=== PATIENT | female | born 2000 | race Caucasian/White ===

== ENCOUNTER 2024-06-23 15:23 | Outpatient (AMB) | payer MEDICAID, SELFPAY ==
--- NOTE | 2024-06-23 15:25 | A.OFFVIS_ITS ---
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 She has had consistant weight loss and issues worsened s/p endoscop y 04/04/24 @ [facility]. States she has had issues for most of her life with nutrition and eating w/ pain. Worsened after endoscopy. Has gastroparesis. 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 Upon discussion with her she has a very complex history. 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 She has undergone extensive workup by GI. She had an upper endoscopy in March for evaluation of nausea vomiting and reflux and weight loss. She also had a gastric emptying study. She was subsequently seen by [facility]. Upon discussion with her she has an acute timeline that over the last 6 months her symptoms have gotten worse. At the current time she is having enteric feeds which she is tolerating and reports that she is gaining some weight back. She is barely able to tolerate any p.o. developed significant nausea and vomiting. She now presents to us for vascular evaluation regarding possible MALS. [facility] Surgical History (Updated 06/23/24 @ 15:37 by PIERRE Richards) H/O endoscopy (~03/2024) Social History (Updated 06/23/24 @ 15:36 by PIERRE Richards) Patient Tobacco Use Status: Never used Tobacco Review of Systems Const All systems reviewed & are unremarkable except as noted in HPI and below Reports no additional complaints ENT Reports Normal hearing present Card Denies chest pain, Denies chest pain at rest, Denies chest pain with activity and Denies pedal edema Resp Denies cough GI Denies abdominal pain Musc Denies abnormal gait, Denies muscle cramps and Denies radiating pain into limb Skin/Breast Denies skin ulcer and Denies wounds Neuro Reports Normal hearing present and Denies abnormal gait Psych Reports no additional complaints Physical Exam Vital Signs: BMI result Body Mass Index 14.8 Const General: cooperative Nutritional Appearance: cachectic, malnourished and underweight Orientation/consciousness: oriented to person, oriented to place and oriented to time HEENT Head: Yes normal to inspection Neck Neck: Yes normal visual inspection Carotids: no bruits Chest Chest palpation & inspection: normal inspection of the chest Resp Effort & Inspection: normal respiratory effort and able to speak in complete sentences Auscultation: clear to auscultation bilaterally, no crackles, no rales, no rhonchi and no wheezes Cardio Rate: regular rate Rhythm: regular rhythm Heart sounds: S1 normal heart sound present and S2 normal heart sound present Bruits: no carotid bruits Peripheral pulses: Peripheral pulses 2+ throughout GI Other: Obvious enteric tube Inspection: Yes normal to inspection Auscultation: Hypoactive bowel sounds present Skin Wounds: no wounds Hair: normal Neuro General: oriented to person, oriented to place and oriented to time Cranial nerves: Yes CN's II-XII intact bilaterally and Yes Normal hearing pre sent Cognition (Neuro): normal cognition Motor exam (neuro): 5/5 motor strength present throughout Extrem Other: venous exam: No significant superficial varicosities or spider telangiectasias, minimal edema General: No clubbing, No cyanosis and No edema Psych Appearance: grossly normal Mental Status: mental status grossly normal Speech and movement: Normal speech and movement present Results Reviewed Results Reviewed: Written report from [facility] scan from [facility] was reviewed Assessment & Plan Assessment & Plan (1) Median arcuate ligament syndrome: Code(s): I77.4 - Celiac artery compression syndrome Category: Medical Plan: I had an opportunity to review the scan. Her symptomatology does not appear to meet criteria for MALS. Unfortunately I do not have images but there is no definitive evidence on written report. I do think she may be better served at a tertiary care center. She has established care at [facility]. I did mention to her that I would continue follow-up there. If this continues to be a source of concern and needs to be re-evaluated would consider evaluation by Dr. John Shultz from vascular surgery at [facility]. Thank you for allowing us to assist in her care. If there are any questions or concerns please do not hesitate to contact us. Coding Level of Care Code New Pt Level 4 (78887) Diagnoses Median arcuate ligament syndrome I77.4
[2024-06-23 15:27] VITALS: BMI 14.8
--- OUTSIDE RECORDS SUMMARY | 2024-06-23 15:58 | XMS_ITS | Encounter Summary ---
Author Organization [employer] Address [address] [facility] [address] [place] [address] Care Team Providers Care Carpenter Rough Name Role Phone Smita [place] Primary Care Provider Unavail able Smita [place] Unavailable Unavailable Benjamin Headley Unassigned Primary Care Provider U Peggy Alfredo Primary Care Provider [phone] Christine Alatorre PMHNP Unavailable [phone] June, Aron AGNSilvestre Primary Care Provider [phone] Encounter Details Date Type Department Care Team (Late st Contact Info) Description 03/11/2022 Orders Only [facility] [address] [place] [address] Smita [place] FNP Postural dizziness with presyncope (Primary Dx) Social History Tobacco Use Types Packs/Day Years Used Date Smoking Tobacco: Never Passive Smoke Exposure: Past Smokeless Tobacco: Never Alcohol Use Standard Drinks/Week Comments Yes 0 (1 standard drink = 0.6 oz pur e alcohol) 1x a month Comments Unknown Sex and Gender Information Value Date Recorded Sex Assigned at Female 02/07/2022 11:21 AM EST Legal Sex Female 6:23 PM EDT Gender Identity Non-Binary 02/18/2023 4:09 PM EST Sexual Orientation Demisexual 02/18/2023 4: 09 PM EST Sexual Orientation Queer 02/18/2023 4: 09 PM EST COVID-19 Exposure Response Date Recorded In the last 10 days, have yo u been in contact with someone who was confirmed or suspected to have Coronavirus/COVID-19? No / Unsure 03/11/2022 4:44 PM EST documented as of this encounter Progress Notes * CAMILA Ellsworth - 03/11/2022 5:54 PM EST ERROR Subjective Patient ID: Veronique Soni is a 21 y.o. female who presents for No chief complaint on file.. HPI Review of Systems Objective Physical Exam Assessment/Plan documented in this encounter Plan of Treatment Upcoming Encounters Date Type Department Care Team (Late st Contact Info) Description 06/28/2024 1:20 PM EDT Office Visit [address] [address] June Aron [address] [address] 07/05/2024 1:20 PM EDT Office Visit [address] [address] [address]Aron [address] [address] 07/12/2024 2:20 PM EDT Office Visit [address] [address] June Aron [address] [address] 07/19/2024 1:20 PM EDT Office Visit [address] [address]ron [address] [address] 07/26/2024 2:20 PM EDT Office Visit [address] [address] Aron Rhodes [address] [address] 08/02/2024 1:20 PM EDT Office Visit [address] [address] Aron [place] AGNP [address] [place] [address] documented as of this encounter Visit Diagnoses Diagnosis Postural dizziness with presyncope- Primary documented in this encounter Care Teams Carpenter Rough Relationship Specialty Start Date End Date Smita [place] FNP PCP - General Family Medicine 12/13/21 06/10/22 Benjamin Headley Unassigned PCP - General Family Medicine 06/11/22 06/12/22 Peggy Marx FNP [address] [place] [address] PCP - General Family Medicine 06/13/22 01/25/24 Aron Rhodes AGNP [address] [place] [address] PCP - General Family Medicine 01/26/24 Smita [place] FNP Family Medicine 12/13/21 06/10/22 Christine Alatorre PMHNP [address] [place] [address] Nurse Practitioner Psychiatry 01/29/23 documented as of this encounter
--- OUTSIDE RECORDS SUMMARY | 2024-06-23 15:58 | XMS_ITS | Data Portability ---
Author Organization [facility], Sports Medicine, [facility] Address [address] [place] [address] Assessment No assessment recorded. Plan of Treatment Reminders Order Date Submit Date Provider Last Modified By Organization Details Last Modified Time Details Appointments None record ed. Lab None record ed. Referral None record ed. Procedures None record ed. Surgeries None record ed. Imaging None record ed. Medication Orders None record ed. Patient TargetsNo targets recorded. Patient InstructionsNo instructions recorded. Reason for Referral None Reported. Results Created Date Observation Date Name Description Value Unit Range Abnormal Flag Note LastModifiedBy Organization Detail LastModifiedTime Result Notes None recorded. Procedures Surgical History Date Name Laterality Status Provider Name and Address Organization Details Recorded Time Tania - Upper Endoscopy completed Demond Marin MD [address] [place] [address], [id number], [facility] 04/04/2024 09:22:54 Imaging Results None recorded. Procedure Notes None recorded. Medical Equipment None Reported. Allergies No known drug allergies Vitals None Recorded Social History None recorded. Functional Status None recorded. Mental Status None recorded. Family History Nothing Reported. Medical History No medical history recorded. Gynecological HistoryNo gynecological history recorded. Obstetrics History GPAL:G 0 P 0 0 0 0 Past Encounters Encounter ID Performer Location Encounter Start Date Encounter Closed Date Diagnosis/Indication Diagnosis SNOMED-CT Code Diagnosis ICD10 Code Diagnosis Note [id number] Demond Marin MD Endoscopy , [address] [address] 04/04/2024 08:27:35 04/04/2024 14:01:31 Health Concerns Section Related Observation LastModified by Organization Detai ls LastModified Time None Recorded Concern Status LastModified by Organization Details LastModified Time None Recorded Advance Directives Directive None Recorded Payers None recorded. OBGyn Episode No OBEpisode recorded.
--- OUTSIDE RECORDS SUMMARY | 2024-06-23 15:58 | XMS_ITS ---
Author Organization [employer] Address [address] [place] [address] [address]t [place] [address] Care Team Providers Care Senior Center Director Name Role Phone Christine AlatorreHNP Unavailable [phone] JuneAron Primary Care Provider [phone] CM Complex Status:Enrolled (Active) Start date:05/19/2024 Enrollment date:05/25/2024 Enrollment reason:ADT Feed Case Team Name Relationship Phone May Ginny (Responsible Staff) [phone] Continued Care and Services Coordination
--- OUTSIDE RECORDS SUMMARY | 2024-06-23 15:58 | XMS_ITS | Encounter Summary ---
Author Organization [employer] Address [address] [facility] 7t [place] [address] Care Team Providers Care Fish Hatchery Worker Name Role Phone Peggy Marx FLOUR WORKER Primary Care Provider [phone] Christine Alatorre PMHNP Unavailable June, Aron AGNP Primary Care Provider Reason for Visit * Reason Onset Date Comments Med Refill 04/14/2023 Encounter Details Date Type Department Care Team ([facility] st Contact Info) Description 04/14/2023 Refill [facility] [address] [place] [address] Peggy Marx FNP [address] [place] [address] Nightmare disorder Social History Tobacco Use Types Packs/Day Years Used Date Smoking Tobacco: Never Passive Smoke Exposure: Past Smokeless Tobacco: Never Alcohol Use Standard Drinks/Week Comments Yes 0 (1 standard drink = 0.6 oz pur e alcohol) 1x a month Alcohol Answer Date Recorded How often do you have a drink containing alcohol ? 0 03/19/2023 How many drinks containing a lcohol do you have on a typical day when you are drinking? 0 03/19/2023 How often do you have six or more drinks on one occasion? 0 03/19/2023 Depression Answer Date Recorded Patient Health Questionnaire-9 Score 15 01/29/2023 Patient Health Questionnaire-9 Score 15 01/29/2023 Last PHQ-9: Questionnaire Data Not on file 1 04/01/2022 Housing Stability Answer Date Recorded What is your housing situation today? I have manish [place]ks 12/02/[address] you li ve. Do you have problems with any of the following? None of the above 12/02/2022 Food Insecurity Answer Date Recorded Within the past 12 months, y ou worried that your food would run out before you got money to buy more: Never True 12/02/2022 Within the past 12 months,th e food you bought just didn't last and you didn't have enough money to get more: Never True Transportation Answer Date Recorded In the past 12 months, has l ack of transportation kept you from medical appts, meetings, work or from getting things needed for daily living? No 12/02/2022 Intimate Partner Violence Answer Date R ecorded Within the last year, have y ou been afraid of your partner or ex-partner? 1 03/19/2023 Within the last year, have y ou been humiliated or emotionally abused in other ways by your partner or ex-partner? 1 Within the last year, have y ou been kicked, hit, slapped, or otherwise physically hurt by your partner or ex-partner? 1 03/19/2023 Within the last year, have y ou been raped or forced to have any kind of sexual activity by your partner or ex-partner? 2 03/19/2023 Utilities Answer Date Recorded In the past 12 months, has t he electric, gas, oil or water company threatened to shut off services in your home? No 12/02/2022 Depression Answer Date Recorded Patient Health Questionnaire-2 Score 2 01/29/2023 Comments Unknown Sex and Gender Information Value Date Recorded Sex Assigned at Female 02/07/2022 11:21 AM EST Legal Sex Female 6:23 PM EDT Gender Identity Non-Binary 02/18/2023 4:09 PM EST Sexual Orientation Demisexual 02/18/2023 4: 09 PM EST Sexual Orientation Queer 02/18/2023 4: 09 PM EST documented as of this encounter Miscellaneous Notes * Telephone Encounter - Monica Connelly LPN - 04/14/2023 2:49 PM EST Switched to 90 days per SR and approved per SR. * Telephone Encounter - Christine [place] - 04/14/2023 1:03 PM EST PCP: CAMILA Mccarthy Last in-person office visit: 04/14/2023 CAMILA Mccarthy Lab Results Component Value Date ALBUMIN 4.6 03/18/2023 ALT 24 03/18/2023 AST 30 03/18/2023 BUN 12 03/18/2023 CL 103 03/18/2023 CO2 25 03/18/2023 CREATININE 0.84 03/18/2023 EGFRCREATINI 109 02/12/2022 HCT 42.2 02/12/2022 HGB 14.1 03/18/2023 HGBA1C 5.0 02/12/2022 PLT 201 02/12/2022 K 4.0 03/18/2023 NA 138 03/18/2023 TSH 1.15 02/12/2022 WBC 7.4 03/18/2023 Future Appointments Date Time Provider Department Center 04/22/2023 1:00 PM COURTNEY Reza [facility] 07/14/2023 10:00 AM CAMILA Mccarthy [facility] Comments: documented in this encounter Plan of Treatment Upcoming Encounters Date Type Department Care Team (Late st Contact Info) Description 06/28/2024 1:20 PM EDT Office Visit [address] [address] Aron [place] AGNP [address] [place] [address] 07/05/2024 1:20 PM EDT Office Visit [address] [phone] Aron Rhodes AGNP [address] [place] [address] 07/12/2024 2:20 PM EDT Office Visit [address] [address] Aron Rhodes AGNSilvestre [address] [place] [address] 07/19/2024 1:20 PM EDT Office Visit [address] [phone] Aron Rhodes AGNP [address] [place] [address] 07/26/2024 2:20 PM EDT Office Visit [address] [phone] JuneAron AGNP [address] [place] [address] 08/02/2024 1:20 PM EDT Office Visit [address] [address] Aron Rhodes AGNP [address] [place] [address] documented as of this encounter Visit Diagnoses Diagnosis Nightmare disorder Other dysfunctions of sleep stages or arousal from sleep documented in this encounter Additional Health Concerns Assessment Noted Time PHQ-9 Depression Total Score: 15 023 10:10 AM EST documented as of this encounter Care Teams Fish Hatchery Worker Relationship Specialty Start Date End Date Peggy Marx FNP [address] [place] [address] PCP - General Family Medicine 06/13/22 01/25/24 Aron Rhodes AGNP [address] [place] [address] PCP - General Family Medicine 01/26/24 Christine Alatorre PMHNP [address] [place] [address] Nurse Practitioner Psychiatry 01/29/23 documented as of this encounter
--- OUTSIDE RECORDS SUMMARY | 2024-06-23 15:58 | XMS_ITS | Encounter Summary ---
Author Organization [employer] Address [address] [facility] 7t [place] [address] Care Team Providers Care Vice President Regulatory Name Role Phone Peggy Marx PRODUCTION ENGINE REPAIRER Primary Care Provider [phone] Christine Alatorre PMHNP Unavailable [phone] June, Aron AGNP Primary Care Provider [phone] Reason for Visit * Reason Comments Med Refill Encounter Details Date Type Department Care Team ([facility] st Contact Info) Description 09/28/[address] [facility] [address] [place] [phone] Peggy Marx FNP [address] [place], [place] [id number] Migraine without status migrainosus, not intractable, unspecified migraine type Social History Tobacco Use Types Packs/Day Years [...] encounter Miscellaneous Notes * Telephone Encounter - CAMILA Mccarthy - 09/29/2023 8:02 AM EDT Approving, but needs appt for additional refills. * Telephone Encounter - Fouzia Noriega - 09/28/2023 8:12 AM EDT PCP: CAMILA Mccarthy Last in-person office visit: 09/09/2023 CAMILA Mccarthy Lab Results Component Value Date ALBUMIN 4.6 03/18/2023 ALT 24 03/18/2023 AST 30 03/18/2023 BUN 12 03/18/2023 CL 103 03/18/2023 CO2 25 03/18/2023 CREATININE 0.84 03/18/2023 EGFRCREATINI 109 02/12/2022 HCT 42.2 02/12/2022 HGB 14.1 03/18/2023 HGBA1C 5.0 02/12/2022 PLT 201 02/12/2022 K 4.0 03/18/2023 NA 138 03/18/2023 TSH 1.15 02/12/2022 WBC 7.4 03/18/2023 No future appointments. Comments: documented in this encounter Plan of Treatment Upcoming Encounters Date Type Department Care Team (Late st Contact Info) Description 06/28/2024 1:20 PM EDT Office Visit [address] [address] Aron Rhodes AGNP [address] [place] [address] 07/05/2024 1:20 PM EDT Office Visit [address] [address] Aron Rhodes AGNP [address] [place] [address] 07/12/2024 2:20 PM EDT Office Visit [address] [address] Aron Rhodes AGNP [address] [place] [address] 07/19/2024 1:20 PM EDT Office Visit [address] [phone] Aron Rhodes AGNP [address] [place] [address] 07/26/2024 2:20 PM EDT Office Visit [address] [phone] [address] 08/02/2024 1:20 PM EDT Office Visit [address] [phone] Aron Rhodes [address] [address] documented as of this encounter Visit Diagnoses Diagnosis Migraine without status migrainosus, not intractable, unspecified migraine type documented in this encounter Additional Health Concerns Assessment Noted Time PHQ-9 Depression Total Score: 15 023 10:10 AM EST documented as of this encounter Care Teams Vice President Regulatory Relationship Specialty Start Date End Date Peggy Marx FNP [address] [place] [address] PCP - General Family Medicine 06/13/22 01/25/24 Aron Rhodes AGNP [address] [place] [address] PCP - General Family Medicine 01/26/24 Christine Alatorre PMHNP [address] [place] [address] Nurse Practitioner Psychiatry 01/29/23 documented as of this encounter
--- OUTSIDE RECORDS SUMMARY | 2024-06-23 15:58 | XMS_ITS | Encounter Summary ---
Author Organization [employer] Address [address] [facility] [address]t [place] [address] Care Team Providers Care Egg Crater Name Role Phone Francisco J Peggy COMMUNICATION SPECIALIST Primary Care Provider [phone] Christine Alatorre HNP Unavailable [phone] June, Aron AGNP Primary Care Provider [phone] Encounter Details Date Type Department Care Team ([facility] st Contact Info) Description 05/07/2023 Telephone [facility] [address] [place] [phone] Peggy Marx FNP [address] [place], [place] [phone] Social History Tobacco Use Types Packs/Day Years [...] encounter Miscellaneous Notes * Telephone Encounter - Chelle Morales - 05/14/2023 1:43 PM EDT Returning call, please try again. She will keep her phone on * Telephone Encounter - Shivani Mata - 05/07/2023 12:58 PM EDT Returning a missed call from nursing. Please call again documented in this encounter Plan of Treatment Upcoming Encounters Date Type Department Care Team (Late st Contact Info) Description 06/28/2024 1:20 PM EDT Office Visit [address] [address] Aron Rhodes [address] [address] 07/05/2024 1:20 PM EDT Office Visit [address] [address] Aron Rhodes [address] [address] 07/12/2024 2:20 PM EDT Office Visit [address] [address] JuneAron [address] [address] 07/19/2024 1:20 PM EDT Office Visit [address] [address] Aron Rhodes [address] [address] 07/26/2024 2:20 PM EDT Office Visit [address] [address] JuneAron [address] [address] 08/02/2024 1:20 PM EDT Office Visit [address] [address] Aron Rhodes [address] [address] documented as of this encounter Visit Diagnoses Not on filedocumented in this encounter Additional Health Concerns Assessment Noted Time PHQ-9 Depression Total Score: 15 023 10:10 AM EST documented as of this encounter Care Teams Egg Crater Relationship Specialty Start Date End Date Peggy Mrax FNP [address] [place] [address] PCP - General Family Medicine 06/13/22 01/25/24 Aron Rhodes AGNP [address] [place] [address] PCP - General Family Medicine 01/26/24 Christine Alatorre PMHNP [address] [place] [address] Nurse Practitioner Psychiatry 01/29/23 documented as of this encounter
--- OUTSIDE RECORDS SUMMARY | 2024-06-23 15:58 | XMS_ITS | Encounter Summary ---
Author Organization [employer] Address [address] [facility] 7t [place] [address] Care Team Providers Care Geomagnetist Name Role Phone Peggy Marx COUNTER INSTALLER Primary Care Provider [phone] Christine Alatorre PMHNP Unavailable [phone] June, Aron AGNP Primary Care Provider [phone] Reason for Visit * Reason Comments Med Refill Encounter Details Date Type Department Care Team ([facility] st Contact Info) Description 11/16/2023 Refill [facility] [address] [place] [phone] Peggy Marx FNP 102 [place], [place] [phone] Irritable bowel syndrome with both constipation and diarrhea; Gastroesophageal reflux disease without esophagitis Social History Tobacco Use Types Packs/Day Years [...] * Telephone Encounter - CAMILA Mccarthy - 11/17/2023 9:01 AM EDT Approving, but needs appt for additional refills. * Telephone Encounter - Estela Bagley - 11/16/2023 8:19 AM EDT PCP: CAMILA Mccarthy Last in-person office visit: 09/09/2023 CAIMLA Mccarthy Lab Results Component Value Date BUN 12 03/18/2023 CREATININE 0.84 03/18/2023 EGFRCREATINI 109 02/12/2022 HGBA1C 5.0 02/12/2022 K 4.0 03/18/2023 TSH 1.15 02/12/2022 [] Lab due: [] BMP [] TSH [] A1C [] Appointment due: No future appointments. Comments: documented in this encounter Plan of Treatment Upcoming Encounters Date Type Department Care Team (Late st Contact Info) Description 06/28/2024 1:20 PM EDT Office Visit [address] [address] Aron Rhodes AGNP [address] [place] [address] 07/05/2024 1:20 PM EDT Office Visit [address] [address] Aorn Rhodes AGNP [address] [place] [address] 07/12/2024 2:20 PM EDT Office Visit [address] [address] Aron Rhodes AGNP [address] [place] [address] 07/19/2024 1:20 PM EDT Office Visit [address] [address] Aron Rhodes AGNP [address] [place] [address] 07/26/2024 2:20 PM EDT Office Visit [address] [phone] Aron Rhodes AGNP [address] [place] [address] 08/02/2024 1:20 PM EDT Office Visit [address] [phone] Aron Rhodes AGNP [address] [place] [address] documented as of this encounter Visit Diagnoses Diagnosis Irritable bowel syndrome with both constipation and diarrhea Gastroesophageal reflux disease without esophagitis Esophageal reflux documented in this encounter Additional Health Concerns Assessment Noted Time PHQ-9 Depression Total Score: 15 023 10:10 AM EST documented as of this encounter Care Teams Geomagnetist Relationship Specialty Start Date End Date Peggy Marx FNP [address] [place] [address] PCP - General Family Medicine 06/13/22 01/25/24 Aron Rhodes AGNP [address] [place] [address] PCP - General Family Medicine 01/26/24 Christine lAatorre PMHNP [address] [place] [address] Nurse Practitioner Psychiatry 01/29/23 documented as of this encounter
--- OUTSIDE RECORDS SUMMARY | 2024-06-23 15:59 | XMS_ITS | Encounter Summary ---
Author Organization [employer] Address 75 [facility] 7t [place] [address] Care Team Providers Care Stave Machine Tender Name Role Phone Peggy Marx WAREHOUSEMAN Primary Care Provider [phone] Christine Alatorre PMHNP Unavailable [phone] June, Aron AGNP Primary Care Provider [phone] Reason for Visit * Reason Comments Med Refill Encounter Details Date Type Department Care Team ([facility] st Contact Info) Description 05/20/2023 Refill [facility] [address] [place] [phone] Peggy Marx FNP 102 [place], [place] [phone] Menorrhagia with irregular cycle Social History Tobacco Use Types Packs/Day Years [...] encounter Miscellaneous Notes * Telephone Encounter - Reva Ontiveros RN - 05/26/2023 3:11 PM EDT [facility] states they have received referral on 03/19 but they do not have an appointment scheduled yet. They state patient needs to call them to set up appointment themselves at [phone] * Telephone Encounter - Joan Benitez - 05/20/2023 7:17 AM EDT PCP: CAMILA Mccarthy Last in-person office visit: 05/15/2023 CAMILA Mccarthy Lab Results Component Value Date ALBUMIN 4.6 03/18/2023 ALT 24 03/18/2023 AST 30 03/18/2023 BUN 12 03/18/2023 CL 103 03/18/2023 CO2 25 03/18/2023 CREATININE 0.84 03/18/2023 EGFRCREATINI 109 02/12/2022 HCT 42.2 02/12/2022 HGB 14.1 03/18/2023 HGBA1C 5.0 02/12/2022 PLT 201 02/12/2022 K 4.0 03/18/2023 NA 138 03/18/2023 TSH 1.15 02/12/2022 WBC 7.4 03/18/2023 Future Appointments Date Time Provider Department Center 06/17/2023 1:[address] [facility] 07/14/2023 10:00 AM CAMILA Mccarthy [facility] Comments: documented in this encounter Plan of Treatment Upcoming Encounters Date Type Department Care Team (Late st Contact Info) Description 06/28/2024 1:20 PM EDT Office Visit [address] [address] Aron Rhodes AGNP [address] [place] [address] 07/05/2024 1:20 PM EDT Office Visit [address] [phone] Aron Rhodes AGNP [address] [place] [address] 07/12/2024 2:20 PM EDT Office Visit [address] [address] Aron Rhodes AGNSilvestre [address] [place] [address] 07/19/2024 1:20 PM EDT Office Visit [address] [address] [address] [address] 07/26/2024 2:20 PM EDT Office Visit [address] [address] Aron Rhodes AGNSilvestre [address] [place] [address] 08/02/2024 1:20 PM EDT Office Visit [address] [address] Aron Rhodes [address] [address] documented as of this encounter Visit Diagnoses Diagnosis Menorrhagia with irregular cycle documented in this encounter Additional Health Concerns Assessment Noted Time PHQ-9 Depression Total Score: 15 023 10:10 AM EST documented as of this encounter Care Teams Stave Machine Tender Relationship Specialty Start Date End Date Peggy Marx FNP [address] [place] [address] PCP - General Family Medicine 06/13/22 01/25/24 Aron Rhodes AGNP [address] [place] [address] PCP - General Family Medicine 01/26/24 Christine Alatorre PMHNP [address] [place] [address] Nurse Practitioner Psychiatry 01/29/23 documented as of this encounter
--- OUTSIDE RECORDS SUMMARY | 2024-06-23 15:59 | XMS_ITS | Encounter Summary ---
Author Organization [employer] Address [address] [facility] 7t [place] [address] Care Team Providers Care Dust Collector Ore Crushing Name Role Phone Christine Alatorre HNP Unavailable [phone] JuneAron Primary Care Provider [phone] Encounter Details Date Type Department Care Team ([facility] Contact Info) Description 05/25/2024 Telephone [facility] [address] [place] [phone] JuneAron AGNP 102 [place] [address] Social History Tobacco Use Types Packs/Day Years [...] Answer Date Recorded Patient Health Questionnaire-9 Score 3 12/04/2023 Patient Health Questionnaire-9 Score 3 12/04/2023 Last PHQ-9: Questionnaire Data Not on file 1 Housing Stability Answer Date Recorded What is your housing situation today? I have manish wilks 12/10/[address] you li ve. Do you have problems with any of the following? None of the above 12/10/2023 Food Insecurity Answer Date Recorded Within the past 12 months, y ou worried that your food would run out before you got money to buy more: Often true 12/10/2023 Within the past 12 months,th e food you bought just didn't last and you didn't have enough money to get more: Often true Transportation Answer Date Recorded In the past 12 months, has l ack of transportation kept you from medical appts, meetings, work or from getting things needed for daily living? Yes, it has kept me from medical appointments or getting medications. 12/10/2023 Intimate Partner Violence Answer Date R ecorded [...] shut off services in your home? No 12/10/2023 Depression Answer Date Recorded Patient Health Questionnaire-2 Score 1 12/04/2023 Internet Access Answer Date Recorded Internet Access Q1 Yes 12/10/2023 Internet Access Q2 Not on file 12/10/2023 Comments Unknown Sex and Gender Information Value Date Recorded Sex Assigned at Female 02/07/2022 11:21 AM EST Legal Sex Female 6:23 PM EDT Gender Identity Non-Binary 02/18/2023 4:09 PM EST Sexual Orientation Demisexual 02/18/2023 4: 09 PM EST Sexual Orientation Queer 02/18/2023 4: 09 PM EST documented as of this encounter Miscellaneous Notes * Telephone Encounter - Indu Palmer LPN - 05/26/2024 8:58 AM EDT Spoke to austin MACK gave information that pt is homebound. They stated next thing is to find a vendor that will supply a pump. Will wait for a call back with a vendor that can supply pump. * Telephone Encounter - Sara Pily - 05/25/2024 1:39 PM EDT Please call [facility] they received a refferal for pt to have iv fluids, they need to know if patient is homebound, their ins only covers VNA services if you are unable to leave your house [phone] Opt 2 documented in this encounter Plan of Treatment Upcoming Encounters Date Type Department Care Team (Late st Contact Info) Description 06/28/2024 1:20 PM EDT Office Visit [address] [address] [address] [address] 07/05/2024 1:20 PM EDT Office Visit [address] [address] [address] [address] 07/12/2024 2:20 PM EDT Office Visit [address] [address] [address]Aron [address] [address] 07/19/2024 1:20 PM EDT Office Visit [address] [address] [address]ron [address] [address] 07/26/2024 2:20 PM EDT Office Visit [address] [phone] JuneAron AGNP [address] [place] [address] 08/02/2024 1:20 PM EDT Office Visit [facility] [address] [place] [phone] JuneAron AGNP [address] [place] [address] documented as of this encounter Visit Diagnoses Not on filedocumented in this encounter Additional Health Concerns Assessment Noted Time PHQ-9 Depression Total Score: 3 12/04/19 3:53 PM EDT documented as of this encounter Care Teams Dust Collector Ore Crushing Relationship Specialty Start Date End Date JuneAron AGNP [address] [place] [address] PCP - General Family Medicine 01/26/24 Christine Alatorre PMHNP [address] [place] [address] Nurse Practitioner Psychiatry 01/29/23 documented as of this encounter
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
--- OUTSIDE RECORDS SUMMARY | 2024-06-23 15:59 | XMS_ITS | Encounter Summary ---
Author Organization [employer] Address [address] [facility] 7t [place] [address] Care Team Providers Care Spotter Name Role Phone Christine Alatorre HNP Unavailable [phone] JuneAron Primary Care Provider Encounter Details Date Type Department Care Team ([facility] Contact Info) Description 05/27/2024 Telephone [facility] [address] [place] [phone] JuneAron AGNP 102 [place] [address] Social History Tobacco Use Types Packs/Day Years [...] PM EST documented as of this encounter Plan of Treatment Upcoming Encounters Date Type Department Care Team ([facility] st Contact Info) Description 06/28/2024 1:20 PM EDT Office Visit [address] [address] May, Aron, AGN[address] [address] 07/05/2024 1:20 PM EDT Office Visit [address] [address] Aron Rhodes [address] [address] 07/12/2024 2:20 PM EDT Office Visit [address] [address] [address]Aron [address] [address] 07/19/2024 1:20 PM EDT Office Visit [address] [address] [address]Aron [address] [address] 07/26/2024 2:20 PM EDT Office Visit [address] [address] JuneAron [address] [address] 08/02/2024 1:20 PM EDT Office Visit [address] [address] [address]Aron [address] [address] documented as of this encounter Visit Diagnoses Not on filedocumented in this encounter Additional Health Concerns Assessment Noted Time PHQ-9 Depression Total Score: 3 12/04/19 24 3:53 PM EDT documented as of this encounter Care Teams Spotter Relationship Specialty Start Date End Date JuneAronKINSilvestre [address] [place] [address] PCP - General Family Medicine 01/26/24 Christine Alatorre PMHNP [address] [place] [address] Nurse Practitioner Psychiatry 01/29/23 documented as of this encounter
--- OUTSIDE RECORDS SUMMARY | 2024-06-23 15:59 | XMS_ITS | Clinical Summary ---
Author Organization [facility] Address [address] [facility] [address] [place] [address] Care Team Providers Care Track Car Operator Name Role Phone Unknown Primary Care Provider Unavailabl e Allergies No known active allergies Medications Medication Sig Dispensed Refills Start Date End Date Status albuterol 90 mcg/actuation HFA Aerosol Inhaler Inhale 2 puffs into the lungs every 4 hours as needed for Wheezing. Use with spacer Active Active Problems Problem Noted Date Diagnosed Date Syncope Overview (11/17/2014): Two episodes: ?? In the shower. Sustained mild right-sided AC joint separation ?? Had LOC and fell down a flight of stairs Immunizations Name Administration Dates Next Due DTaP (Daptacel) 09/30/2002, 1,03/14/1999,01/17,1998 Hepatitis B Adult (Engerix-B , Recombivax) 09/30/2002,12/24/1999,09/06/1999 Hib HbOC Conjugate (HibTITER) 12/24/1999 ,03/14/1999,01/17/1999,11/08 Influenza Unspecified Formulation 2011(Deferred: Patient Refused - [facility] - Influenza Declined; 11/04/11; recorded on 11/04/2011 8:41:42 AM;) MMR Vaccine LIVE 09/30/2002,12/24/1999 Meningococcal ACWY Polysacch aride Conjugate (Menactra) 11/30/2014,10/23/2010 Polio Inactivated (IPOL) 09/30/2002,02/17,01/17/1999,11/08 Tdap (Adacel, Boostrix) 11/03/2008 Varicella LIVE (Varivax) 11/03/2006,09/14/2001 Social History Tobacco Use Types Packs/Day Years Used Date Smoking Tobacco: Never Smokeless Tobacco: Never Alcohol Use Standard Drinks/Week Comments No 0 (1 standard drink = 0.6 oz pur e alcohol) Sex and Gender Information Value Date Recorded Sex Assigned at Not on file Gender Identity Not on file Sexual Orientation Not on file Last Filed Vital Signs Vital Sign Reading Time Taken Comments Blood Pressure 114/70 01/20/2017 7:24 AM EST Pulse 59 01/20/2017 7:22 AM EST Temperature 36.8 ??C (98.3 ??F) 01/20/2017 4:38 AM ES T Respiratory Rate 17 01/20/2017 7:22 AM EST Oxygen Saturation 99% 01/20/2017 7:22 AM EST Inhaled Oxygen Concentration - - Weight 52.2 kg (115 lb) 01/20/2017 4:38 AM EST Height 177.8 cm (5' 10 ) 01/20/2017 4:38 AM EST Body Mass Index 16.5 01/20/2017 4:38 AM EST Plan of Treatment Health Maintenance Due Date Last Done Comments Chlamydia Screening 2013 HPV vaccine (1 - 3-dose series) 2013 HIV screen 2016 Hepatitis C Screening 2016 Tetanus/Diphtheria/Pertussis Vaccines (7 - Td or Tdap) 11/03/2018 11/03/2008, 09/30/2002, 03/12/2000, Additional history exists PAP Smear 09/03/2019 Covid-19 Vaccine ( - 2023-2 5 season) 2023 Influenza (Flu) vaccine (1 o f 1 - Influenza standard series) 10/18/2023 Hepatitis B vaccine (0-59 yr s) and Risk Completed 09/30/2002, 12/24/1999, 09/06/1999 Care Teams Track Car Operator Relationship Specialty Start Date End Date Unknown None PCP - General 08/31/20
--- OUTSIDE RECORDS SUMMARY | 2024-06-23 15:59 | XMS_ITS | Clinical Summary ---
Author Organization [employer] Address [address] [facility] 7t [place] [address] Care Team Providers Care Lining Printer Name Role Phone Christine Alatorre PMHNP Unavailable [phone] JuneAron Primary Care Provider [phone] Allergies Active Allergy Reactions Criticality Noted Date Comments Droperidol Medium 04/12/2024 Nortriptyline Other High 05/16/2024 Dystonia, muscle contractures, peripheral numbness and tremors Medications * This document contains information received from the source organization and may not represent a complete record from that organization. SUMAtriptan (Imitrex) 50 MG tabletIndications :Migraine without status migrainosus, not intractable, unspecified migraine type TAKE 1 TABLET (50 MG) BY MOUTH 1 (ONE) TIME IF NEEDED FOR MIGRAINE. MAY REPEAT DOSE ONCE IN 2 HOURS IF NO RELIEF. DO NOT EXCEED 2 DOSES IN 24 HOURS. 9 tablet 024 Active albuterol 108 (90 Base) MCG/ACT inhaler Inhale 2 puffs every 4 (four) hours if needed for wheezing or shortness of breath. 18 g 1 024 Active cromolyn (Gastrocrom) 100 MG/5ML solution Take 100 mg by mouth before breakfast, before lunch, before evening meal, and at bedtime. 024 Active midodrine (Proamatine) 2.5 MG tablet Take 2.5 mg by mouth 3 times daily. 024 Active baclofen (Lioresal) 10 MG tabletIndications :Muscle spasms of neck Take 1 tablet (10 mg) by mouth if needed in the morning, at noon, and at bedtime for muscle spasms. 90 tablet 2 Active famotidine (Pepcid) 40 MG tablet Take 40 mg by mouth at bedtime. Active ondansetron ODT (Zofran-ODT) 4 MG disintegrating tablet Take 1 tablet by mouth every 8 (eight) hours if needed for nausea. Active ibuprofen 800 MG tabletIndications :Cervicalgia TAKE 1 TABLET BY MOUTH 3 TIMES DAILY. 90 tablet 2 Active pantoprazole (ProtoNix) 40 MG EC tablet Take 40 mg by mouth in the morning. 025 Active cetirizine (ZyrTEC) 1 MG/ML syrupIndications: Seasonal allergic rhinitis, unspecified trigger,On tube feeding diet Take 10 mL (10 mg) by mouth Once per day. 300 mL 2 025 2024 Active fluticasone (Flonase) 50 MCG/ACT nasal sprayIndications: Seasonal allergic rhinitis, unspecified trigger Administer 1-2 sprays into each nostril Once per day. Shake gently. Before first use, prime pump. After use, clean tip and replace cap. 16 g 2 025 2025 Active ibuprofen 800 MG tabletIndications :Cervicalgia Take 1 tablet (800 mg) by mouth 3 times daily. 90 tablet 2 024 2024 Discontinued omeprazole (PriLOSEC) [address] capsuleIndication s:Irritable bowel syndrome with both constipation and diarrhea,Gastroes ophageal reflux disease without esophagitis TAKE 1 CAPSULE (20 MG) BY MOUTH BEFORE BREAKFAST DO NOT CRUSH OR CHEW 90 capsule 3 025 2024 Discontinued(T herapy completed) propranolol (Inderal) 20 MG tablet Take 20 mg by mouth if needed in the morning, at noon, and at bedtime. 024 2024 Discontinued(T herapy completed) Bisacodyl EC 5 MG EC tablet PLEASE SEE ATTACHED FOR DETAILED DIRECTIONS 025 2024 Discontinued(T herapy completed) sucralfate (Carafate) 1 GM/10ML suspensionIndicat ions:Gastroesopha geal reflux disease without esophagitis Take 10 mL (1 g) by mouth four times a day (before meals and at bedtime). 473 mL 2 025 2024 Discontinued(T herapy completed) danazol (Danocrine) 50 MG capsuleIndication s:Dysmenorrhea TAKE 1 CAPSULE BY MOUTH 2 TIMES DAILY 180 capsule 1 025 2024 Discontinued(T herapy completed) metoclopramide (Reglan) 10 MG tablet Take 10 mg by mouth if needed in the morning, at noon, and at bedtime. 025 2024 Discontinued(T herapy completed) tranexamic acid (Lysteda) 650 MG tablet tablet Take 1,300 mg by mouth 3 times daily. 025 2024 Active Problems Problem Noted Date Diagnosed Date Nasojejunal (NJ) tube in place 06/20/2024 Unable to tolerate PO 05/20/2024 Insomnia due to medical condition 05/05/2024 Hiatal hernia 04/12/2024 Gastroesophageal reflux disease without esophagi tis 04/12/2024 Gastroparesis 12/10/2023 Dysmenorrhea 08/07/2023 History of trauma 08/07/2023 Migraine 08/07/2023 Assessment & Plan (12/04/2023 5:35 PM EDT): - I suspect Tiffany has experienced acute complicated migraine that also triggered some of their other chronic conditions. There are no red flags on exam - encouraged repeat dose of Sumatriptan - add PRN Meclizine and PRN Zofran refilled - follow up with PCP as scheduled Observed seizure-like activity 03/19/2023 Assessment & Plan (03/19/2023 9:36 AM EST): No additional seizure-like activity since last visit. Has completed EEG and is awaiting appt with neurology Postural orthostatic tachycardia syndrome 202201/27/2023 Assessment & Plan (04/24/2023 8:55 PM EST): A lot of discussion around the intersection of POTS and anxiety- the very physical and exacerabting nature each has on the other. She seemed to resonate with this and really grasp that this can be significant. Irritable bowel syndrome 01/27/2023 023 Asthma 01/27/2023 01/27/2023 ADHD 01/06/2023 Overview (08/07/2023): Is the oldest of 4 boys - it is a nervous system thing Time Management Overwhelmed with management Forgetful Intrusive in conversation Figity, poor bodily understanding of cues The ritalin - increased POTS symptoms (tachycardia) almost but this was incredibly effective- did everything without having to think about things. - without the propanolol up to 200 bpm Strattera - 40 mg Assessment & Plan (04/24/2023 8:57 PM EST): The heart rate , chest discomfort and symptoms of dissociation indicate to me we need to change the ADHD medication. 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 Pt overwhelmingly meets criteria, however it is worth ruling out Marfan's and cEDS d/t family history and clinical presentation Assessment & Plan (12/25/2023 1:57 PM EST): Pt [facility] app[facility] with [facility] at the end of January to rule out other genetic conditions. Exercise intolerance 04/15/2022 Sinus tachycardia 03/15/2022 Overview (08/07/2023): Bradycardia on EKG Pt reports tachycardia + dizziness with standing Consider low BMI referred to nutrtion Concern for POTS. Cardiology referral and Holter Underweight 03/15/2022 Assessment & Plan (03/15/2022 4:50 PM EST): CBC CMP TSH unremarkable Pt self reports low food intake with stated behavioral indication of anorexia or bulemia Consider low caloric intake. Low BMI longstanding. Syncope present ( four episodes) in adolescence without definitive diagnosis. Generalized anxiety disorder 02/07/2022 Overview (04/22/2023): Whole childhood was quite rough - parents - dad went to fdc at 5 yo she was responsible for her brothers dad is narcissistic and mom was bipolar and schizophrenix. Kicked out at 13 Anxious attachment style Sound sensitive High rejection sensitivity Does not get cues about hunger and thirst History of panic attack: socks are really difficult, sounds light touch, organs will feel wrong, sounds, really responsive to sticky textures; difficulty with even laying down and touching her own skin will have trouble sleeping as a result of how her body feels - smells get overwhleming if she cannot stim or leave the situation - she will have to stim waving hands and arms and get irritable and short tempered . She cannot regulate when she is having any sort of Self harm and destruction - clamping hands down nails into the palm Has a lot of difficulty with the arms and legs feels like a nightmare - things move in slow motion- then things are not moving - discuss the POTS and the Anxiety . Assessment & Plan (01/29/2023 11:23 AM EST): OT referral will be placed for Interoceptive awareness and modulation of her tactical input and output. Assessment & Plan (02/07/2022 11:27 AM EST): Increasing prozac from 20mg to 30mg. Will return in 6wks for f/u and possible further dose titration. Palpitations 02/07/2022 Overview (02/07/2022): Pediatric hx/o syncope of unknown etiology. Palpitations now increasing in frequency. 01/2022 CBC, TSH, BMP, and EKG all wnl. Assessment & Plan (02/07/2022 11:29 AM EST): Likely related to anxiety, though given hx/o syncope and apple watch monitor of intermittent tachycardia to 170 ordering event monitor to r/o arrhythmia. Resolved Problems Problem Noted Date Diagnosed Date Resolved Date Postural dizziness with presyncope 02/15/2022 06/20/2024 Assessment & Plan (02/15/2022 12:32 PM EST): FH of POTS and Manuel Danlos. Orthostatics in clinic today stable without objective evidence today of compensatory hemodynamic changes suggestive of POTS. Asymptomatic. Pt does not describe pre syncope with position changes in clinic. Follow up with holter for longer observance of cardiac monitoring. Check for other cause, repeat Thyroid, assess blood sugar, new anemia or other blood dyscrasias, and alteration in kidney, liver function. Consider medication side effect of SSRI. Although pt endoreses satisfactory improvement in anxiety since start of SSRI. Encounters Date Type Department Care Team Description 06/20/2024 9:20 AM EDT Office Visit [address] [phone] Aron Rhodes AGNP Seasonal allergic rhinitis, unspecified trigger (Primary Dx); Nasojejunal (NJ) tube in place; On tube feeding diet 06/17/2024 Plan of Care Documentation [facility] [address] [place] [phone] 06/17/2024 Plan of Care Documentation [facility] [address] [place] [phone] 06/17/2024 Plan of Care Documentation [facility] Department [address] [place] [phone] 06/17/2024 Patient Outreach [facility] Department [address] [place] [phone] Andrea06/13/2024 Travel 06/13/[address] [address] Aron Rhodes AGNP 06/07/[address] [address] MayAron AGNP 06/07/[address] [address] JuneAron AGNP 06/02/[address] [address] JuneAron AGNP 05/31/2024 Patient Outreach [address] [phone] Ivanna Madrid LPN 05/31/[address] [place] [address] JuneAron AGNP 05/29/[address] [place] [address] MayAron AGNP Cervicalgia 05/27/[address] [address] JuneAron AGNP 05/25/[address] [address] JuneAron AGNP 05/19/2024 Patient Outreach [facility] () [address] [phone] Beau, 05/16/2024 3:40 PM EDT Office Visit [address] [address] JuneAron AGNP Gastroparesis (Primary Dx); Postural orthostatic tachycardia syndrome; Unable to tolerate PO 05/16/[address] [address] JuneAron AGNP 05/13/[address] [address] MayAron AGNP 05/12/[address] [address] JuneAron AGNP 05/05/2024 9:00 AM EDT Office Visit [address] [address] Aron Rhodes AGNP Hypermobile Manuel-Danlos syndrome (Primary Dx); Postural orthostatic tachycardia syndrome; Gastroparesis; Insomnia due to medical condition 04/29/2024 Population Health Risk Score [facility] ([facility] Department [address] [place] [phone] Provider, Population Health Generic 04/25/[address] [address] Aron Rhodes AGNP Dysmenorrhea 04/21/[address] [address] Aron Rhodes AGNP 04/13/2024 Orders Only [facility] [address] [address] Provider, Not In System 04/12/2024 10:40 AM EST Office Visit [address] [phone] Aron Rhodes AGNP Gastroparesis (Primary Dx); Gastroesophageal reflux disease without esophagitis; Unable to eat; Underweight 04/08/[address] [address] Aron Rhodes AGNP 04/07/[address] [address] Aron Rhoeds AGNP 04/06/2024 Orders Only [address] [phone] Keegan Jones PA-C 04/05/[address] [phone] Aron Rhodes AGNP from Last 3 Months Immunizations Name Administration Dates Next Due DTaP, 5 pertussis antigens 09/30/2002,,03/14/1999,01/17,1998 Hep B, adult 09/30/2002,12/24/1999,09/06/1999 Hib (HbOC) 12/24/1999, 0,01/17/1999,11/08 IPV 09/30/2002, 1,01/17/1999,11/08 Influenza injectable quadriv alent preservative free 11/26/2022(Deferred: Patient decision) MMR 09/30/2002,12/24/1999 Meningococcal [id number] [id number] 11/30/2014,10/24/19 11 Tdap 11/03/2008 Varicella 11/03/2006,09/14/2001 Social History Tobacco Use Types Packs/Day Years Used Date Smoking Tobacco: Never Passive Smoke Exposure: Past Smokeless Tobacco: Never Tobacco Cessation:Counseling Given: Yes Alcohol Use Standard Drinks/Week Comments Yes 0 [...] the past 12 months, has t he [employer], gas, oil or water [employer] [place] threatened to shut off services in your [...] Orientation Queer 02/18/2023 4: 09 PM EST Last Filed Vital Signs Vital Sign Reading Time Taken Comments Blood Pressure 99/65 06/20/2024 9:34 AM EDT Pulse 101 06/20/2024 9:34 AM EDT Temperature 36 ??C (96.8 ??F) 06/20/2024 9:34 AM EDT Respiratory Rate - - Oxygen Saturation 100% 06/20/2024 9:34 AM EDT Inhaled Oxygen Concentration - - Weight 48.4 kg (106 lb 9.6 oz) 05/16/2024 3:51 P M EDT Height 175.3 cm (5' 9 ) 04/12/2024 11:00 AM EST Body Mass Index 15.74 04/12/2024 11:00 AM EST Plan of Treatment Upcoming Encounters Date Type Department Care Team ([facility] st Contact Info) Description 06/28/2024 1:20 PM EDT Office Visit [address] [phone] May, Aron, [address] [address] 07/05/2024 1:20 PM EDT Office Visit [address] [place] [address] Aron Rhodes [address] [address] 07/12/2024 2:20 PM EDT Office Visit [address] [address] Aron Rhodes [address] [address] 07/19/2024 1:20 PM EDT Office Visit [address] [phone] JuneAron [address] [address] 07/26/2024 2:20 PM EDT Office Visit [address] [address] Aron Rhodes [address] [address] 08/02/2024 1:20 PM EDT Office Visit [address] [address] JuneAron [address] [address] Health Maintenance Due Date Last Done Comments HIV Screening 1998 Alcohol/Substance Use Screening 2010 HPV Vaccines (1 - 3-dose series) 2013 Hepatitis C Screening 2016 Pneumococcal Vaccine: Pediatrics (0 to 5 Years) and At-Risk Patients (6 to 49) Years) (1 of 2 - PCV) 2017 DTaP/Tdap/Td Vaccines (7 - Td or Tdap) 11/03/2018 11/03/2008, 09/30/2002, 03/12/2000, Additional history exists Influenza Vaccine (#1) 2024 Postp oned from 10/18/2023 (Patient Refused) Depression Screening 12/03/2024 12/04/2023, 12/04/19 SDOH Screening 12/09/2024 12/10/2023 Tobacco Screening 12/20/2024 12/21/2023 COVID-19 Vaccine ( season) 2025 05/16/2022, 04/25/2022 Postponed from 10/18/2023 (Patient Refused) Family Planning (PISQ) 03/23/2025 03/23/2024 Pap Smear 03/24/2026 03/24/2023 Zoster Vaccines (1 of 2) 2048 RSV Patients and Patients Aged 60 years or older (1 - 1-dose 75+ series) 2073 HIB Vaccines Completed 12/24/1999, 02/17, 01/17/1999, Additional history exists Hepatitis B Vaccines Completed 09/30/2002, 12/24/1999, 09/06/1999 IPV Vaccines Completed 09/30/2002, 02/17, 01/17/1999, Additional history exists Meningococcal Vaccine Completed 11/30/2014, 011 Hepatitis A Vaccines Aged Out No long er eligible based on patient's age to complete this topic RSV under 20 months Aged Out No longe r eligible based on patient's age to complete this topic Rotavirus Vaccines Aged Out No longer eligible based on patient's age to complete this topic Procedures Procedure Name Priority Date/Time Associated Diagnosis Comments MR CERVICAL SPINE WO CONTRAST Routine 05/03/2024 Cervical spine instability MR BRAIN WO CONTRAST Routine 05/03/2024 Impaired proprioception TISSUE PATHOLOGY Routine 04/04/2024 10:4 9 AM EST PAP SMEAR Routine 03/24/2023 12:00 AM EST from Last 3 Months or Most Recently Relevant to Health Maintenance Results * MR Cervical Spine w/o Contrast (05/03/2024) Anatomical Region Laterality Modality Spine, C-spine Magnetic Resonan ce us Aron May AGNP IMG MRI PROCEDURES Final Result * MR Brain w/o Contrast (05/03/2024) Anatomical Region Laterality Modality Brain Magnetic Resonan ce us Aron May AGNP IMG MRI PROCEDURES Final Result * Tissue Pathology (04/04/2024 10:49 AM EST) Tissue us Not In System Provider LAB PATHOLOGY ORDERABLES Edited Result - Final * Pap Smear (03/24/2023 12:00 AM EST) Swab Historical Provider LAB CYTOLOGY ORDERABLES F inal Result [facility] [address] [place] [address] from Last 3 Months or Most Recently Relevant to Health Maintenance Insurance [employer] [facility] [employer] Care Teams Lining Printer Relationship Specialty Start Date End Date June, VALERIO Sharp [address] [place] [address] PCP - General Family Medicine 01/26/24 Christine Alatorre PMHNP [address] [place] [address] Nurse Practitioner Psychiatry 01/29/23
--- OUTSIDE RECORDS SUMMARY | 2024-06-23 15:59 | XMS_ITS | Encounter Summary ---
Author Organization [employer] Address [address] [facility] 7t [place] [address] Care Team Providers Care Bus Driver/Monitor Name Role Phone Christine Alatorre HNP Unavailable [phone] JuneAron Primary Care Provider [phone] Encounter Details Date Type Department Care Team ([facility] Contact Info) Description 06/02/2024 Telephone [facility] [address] [place] [phone] JuneAron AGNP [address] [place] [address] Social History Tobacco Use Types Packs/Day Years [...] encounter Miscellaneous Notes * Telephone Encounter - Ivanna Madrid LPN - 06/02/2024 9:26 AM EDT Noted * Telephone Encounter - Hue Saul - 06/02/2024 9:20 AM EDT FYI Hernandez Sumeet MACK is calling to let us know they are closing the home health referral because the patient is currently admitted into the hospital. documented in this encounter Plan of Treatment Upcoming Encounters Date Type Department Care Team (Late st Contact Info) Description 06/28/2024 1:20 PM EDT Office Visit [address] [phone] Aron Rhodes [address] [address] 07/05/2024 1:20 PM EDT Office Visit [address] [address] [address] 07/12/2024 2:20 PM EDT Office Visit [address] [address] Aron Rhodes [address] [address] 07/19/2024 1:20 PM EDT Office Visit [address] [address] Aron Rhodes [address] [address] 07/26/2024 2:20 PM EDT Office Visit [address] [address] Aron Rhodes [address] [address] 08/02/2024 1:20 PM EDT Office Visit [address] [phone] JuneAron AGNP [address] [place] [address] documented as of this encounter Visit Diagnoses Not on filedocumented in this encounter Additional Health Concerns Assessment Noted Time PHQ-9 Depression Total Score: 3 12/04/19 3:53 PM EDT documented as of this encounter Care Teams Bus Driver/Monitor Relationship Specialty Start Date End Date JuneAron AGNP [address] [place] [address] PCP - General Family Medicine 01/26/24 Christine Alatorre PMHNP [address] [place] [address] Nurse Practitioner Psychiatry 01/29/23 documented as of this encounter
--- OUTSIDE RECORDS SUMMARY | 2024-06-23 15:59 | XMS_ITS | Encounter Summary ---
Author Organization [employer] Address [address] [facility] 7t [place] [address] Care Team Providers Care Etcher Aircraft Name Role Phone Christine Alatorre HNP Unavailable [phone] JuneAron Primary Care Provider [phone] Encounter Details Date Type Department Care Team ([facility] Contact Info) Description 04/21/2024 Telephone [facility] [address] [place] [phone] JuneAron AGNP [address] [place] [address] Social History Tobacco Use Types Packs/Day Years [...] * Telephone Encounter - Lizzy Trotter - 04/26/2024 4:42 PM EDT Processsed and faxed Auth #[id number] Valid 04/04/24-04/04/25 Visits: 6 * Telephone Encounter - Jai Patito - 04/21/2024 10:12 AM EST Verified Insurance: Referral Office: [facility] Diagnosis Code: R10.84 Number of Visits Needed: 6 NPI# of Facility: [id number] NPI# of Provider being referred to: [id number] Dr. Demond Sanchez Phone #: [phone] Fax #: [phone] Start date: 04/04/24 documented in this encounter Plan of Treatment Upcoming Encounters Date Type Department Care Team (Late st Contact Info) Description 06/28/2024 1:20 PM EDT Office Visit [address] [address] Aron Rhodes [address] [address] 07/05/2024 1:20 PM EDT Office Visit [address] [address] Aron Rhodes [address] [address] 07/12/2024 2:20 PM EDT Office Visit [address] [address] Aron Rhodes [address] [address] 07/19/2024 1:20 PM EDT Office Visit [address] [address] Aron Rhodes AGNP [address] [place] [address] 07/26/2024 2:20 PM EDT Office Visit [address] [address] Aron Rhodes AGNP [address] [place] [address] 08/02/2024 1:20 PM EDT Office [facility] [address] [place] [phone] JuneAron AGNP [address] [place] [address] documented as of this encounter Visit Diagnoses Not on filedocumented in this encounter Additional Health Concerns Assessment Noted Time PHQ-9 Depression Total Score: 3 12/04/19 24 3:53 PM EDT documented as of this encounter Care Teams [employer]cher [employer] Relationship Specialty Start Date End Date MeaganAron AGNP [address] [place] [address] PCP - General Family Medicine 01/26/24 Christine Alatorre PMHNP [address] [place] [address] Nurse Practitioner Psychiatry 01/29/23 documented as of this encounter
--- OUTSIDE RECORDS SUMMARY | 2024-06-23 15:59 | XMS_ITS | Encounter Summary ---
Author Organization [employer] Address [address] [facility] 7t [place] [address] Care Team Providers Care Wreath Machine Tender Name Role Phone Christine Alatorre PMHNP Unavailable [phone] JuneAron Primary Care Provider [phone] Reason for Visit * Reason Comments Follow-up -Admitted in [place] for 9 days-Feeding tube -Chest port Encounter Details Date Type Department Care Team ([facility] st Contact Info) Description 06/20/2024 9:20 AM EDT Office Visit [facility] [address] [place] [phone] JuneAron AGNP [address] [place] [address] Seasonal allergic rhinitis, unspecified trigger (Primary Dx); Nasojejunal (NJ) tube in place; On tube feeding diet Social History Tobacco Use Types Packs/Day Years [...] PM EST documented as of this encounter Last Filed Vital Signs Vital Sign Reading Time Taken Comments Blood Pressure 99/65 06/20/2024 9:34 AM EDT Pulse 101 06/20/2024 9:34 AM EDT Temperature 36 ??C (96.8 ??F) 06/20/2024 9:34 AM EDT Respiratory Rate - - Oxygen Saturation 100% 06/20/2024 9:34 AM EDT Inhaled Oxygen Concentration - - Weight - - Height - - Body Mass Index - - documented in this encounter Progress Notes * Aron Rhodes KINSilvestre - 06/20/2024 9:20 AM EDT Tiffany Soni is a 23 y.o. non-binary who presents today for Chief Complaint Patient presents with Follow-up -Admitted in [place] for 9 days -Feeding tube -Chest port Pt presents in office today for hospital follow up[place] [facility] [place] - Selma NAJERA; Luis Perera MD, Jonas Kearney MD (surgeon), Theodore Condon MD - Pt was [place] [facility], during which they placed NJ tube for enteral feeding - Complicated stay with difficulty passing tube through pyloric sphincter, currently on third tube placement since admission - Concerns about pressure ulcers due to tube movement; tube migration has caused nasal and throat sores - Underwent multiple endoscopies for placement; first attempt tube came out with the camera, causing coughing of blood and mucus - Experienced multiple dystonia episodes with muscle contractures, possibly related to nausea or pain, as these are the only common threads during episodes. Team does not know the etiology of these episodes, possibly vagus nerve vs complex trauma? - Experienced vomiting bile only x 1 in hospital; IV Zofran provided some relief, despite significant abdominal pain and cramping with food intake - Pt states they received minimal to no guidance on tube feed management upon discharge, no follow up scheduled by GI team for removal despite verbalized plan of removing after 4-6 weeks - Gastric emptying study in April 2024 suggested possible gastroparesis, but diagnosis remains uncertain - [place] [facility] to think pt has functional dyspepsia and is skeptical of gastroparesis diagnosis - Pt diagnosed with failure to thrive and anorexia in hospital, no other diagnoses determined - Weight fluctuations between 97 lbs and 107 lbs; experiencing constipation, diarrhea, and bloatingwith new tube feed diet - Allergies seem to be exacerbated by tube presence; experiencing sinus pain and post nasal drip - Most recent endoscopy showed no concerning findings; previous bezoar not mentioned in recent notes - Still no update regarding port placement, David BILL states they haven't received referral from us, will fax again today Upcoming visits: - POT[facility] specialist at [facility] - medical communication specialist for [facility] - Vascular specialist at [facility] to discuss MALS Review of Systems Otherwise noted in HPI. Objective BP 99/65 (BP Location: Left arm, Patient Position: Sitting, BP Cuff Size: Adult) Pulse 101 Temp96.8 ??F (36 ??C) (Temporal) SpO2 100% Physical Exam Vitals reviewed. Constitutional: Appearance: Normal appearance. Comments: Dobhoff tube secured in Right nostril Pulmonary: Effort: Pulmonary effort is normal. Musculoskeletal: General: Normal range of motion. Skin: General: Skin is warm and dry. Neurological: Mental Status: Tiffany is alert and oriented to person, place, and time. Mental status is at baseline. Psychiatric: Mood and Affect: Mood normal. Speech: Speech normal. Behavior: Behavior normal. Thought Content: Thought content normal. Assessment/Plan Problem List Items Addressed This Visit Nasojejunal (NJ) tube in place Other Visit Diagnoses Seasonal allergic rhinitis, unspecified trigger - Primary Relevant Medications cetirizine (ZyrTEC) 1 MG/ML syrup fluticasone (Flonase) 50 MCG/ACT nasal spray On tube feeding diet Relevant Medications cetirizine (ZyrTEC) 1 MG/ML syrup Tube feeding: - Lack of communication and follow-up from the GI team regarding the tube and medication trials - Continue on plan set forth during hospitalization for dosing - Schedule weekly PCP follow-up appointments for the next 6 weeks - I will attempt to reach out to the GI team for updates and guidance Dystonia episodes: - Episodes of severe muscle contraction with no clear explanation - Consider consult with a neurologist for further evaluation if episodes continue Allergies and sinus issues: - Seasonal allergy symptoms exacerbated by the presence of the tube - Prescribe Flonase nasal spray and liquid Zyrtec to manage allergy symptoms Medication management: - Dysphagia due to tube placement - Consider using liquid formulations for medications like Tylenol and ibuprofen Follow up in about 1 week (around 06/27/2024) for Tube feed, 40 minutes. Future Appointments Date Time Provider Department Center 06/28/2024 1:20 PM Aron June, AGNP [facility] 07/05/2024 1:20 PM Aron June, AGNP [facility] 07/12/2024 2:20 PM Aron June, AGNP [facility] 07/19/2024 1:20 PM Aron June, AGNP [facility] 07/26/2024 2:20 PM Aron June, AGNP [facility] 08/02/2024 1:20 PM Aron June, AGNP [facility] documented in this encounter Plan of Treatment Upcoming Encounters Date Type Department Care Team (Late st Contact Info) Description 06/28/2024 1:20 PM EDT Office Visit [address] [phone] JuneAron KINSilvestre [address] [place] [address] 07/05/2024 1:20 PM EDT Office Visit [address] [address] [address] 07/12/2024 2:20 PM EDT Office Visit [address] [address] JuneAron KINSilvestre [address] [place] [address] 07/19/2024 1:20 PM EDT Office Visit [address] [address] JuneAron KINSilvestre [address] [place] [address] 07/26/2024 2:20 PM EDT Office Visit [address] [address] JuneAron KINSilvestre [address] [place] [address] 08/02/2024 1:20 PM EDT Office Visit [facility] [address] [place] [phone] Aron Rhodes AGNP [address] [place] [address] documented as of this encounter Visit Diagnoses Diagnosis Seasonal allergic rhinitis, unspecified trigger- Primary Nasojejunal (NJ) tube in place On tube feeding diet documented in this encounter Additional Health Concerns Assessment Noted Time PHQ-9 Depression Total Score: 3 12/04/19 3:53 PM EDT documented as of this encounter Care Teams Wreath Machine Tender Relationship Specialty Start Date End Date Aron Rhodes AGNP [address] [place] [address] PCP - General Family Medicine 01/26/24 Christine Alatorre PMHNP [address] [place] [address] Nurse Practitioner Psychiatry 01/29/23 documented as of this encounter
--- OUTSIDE RECORDS SUMMARY | 2024-06-23 15:59 | XMS_ITS | Encounter Summary ---
Author Organization [employer] Address [address] [facility] 7t [place] [address] Care Team Providers Care Senior Java Data Architect Name Role Phone Christine Alatorre HNP Unavailable [phone] JuneAron Primary Care Provider [phone] Encounter Details Date Type Department Care Team ([facility] Contact Info) Description 05/31/2024 Telephone [facility] [address] [place] [phone] JuneAron AGNP [address] [place] [address] Social History Tobacco Use Types Packs/Day Years [...] Telephone Encounter - Ivanna Madrid LPN - 05/31/2024 2:14 PM EDT Scheduled ER follow up * Telephone Encounter - Shivani Mata - 05/31/2024 2:03 PM EDT Arms and legs went numb yesterday prompting her to go to the er., suspects an adverse reaction to reglan which was administered in the er. Also suspects a seizure while in the er . Please call [phone] documented in this encounter Plan of Treatment Upcoming Encounters Date Type Department Care Team (Late st Contact Info) Description 06/28/2024 1:20 PM EDT Office Visit [address] [address] Aron Rhodes [address] [address] 07/05/2024 1:20 PM EDT Office Visit [address] [address] Aron Rhodes [address] [address] 07/12/2024 2:20 PM EDT Office Visit [address] [address] Aron Rhodes [address] [address] 07/19/2024 1:20 PM EDT Office Visit [address] [address] Aron Rhodes [address] [address] 07/26/2024 2:20 PM EDT Office Visit [address] [address] Aron Rhodes [address] [address] 08/02/2024 1:20 PM EDT Office Visit [facility] [address] [place] [phone] JuneAron AGNP [address] [place] [address] documented as of this encounter Visit Diagnoses Not on filedocumented in this encounter Additional Health Concerns Assessment Noted Time PHQ-9 Depression Total Score: 3 12/04/19 3:53 PM EDT documented as of this encounter Care Teams Senior Java Data Architect Relationship Specialty Start Date End Date JuneAron AGNP [address] [place] [address] PCP - General Family Medicine 01/26/24 Christine Alatorre PMHNP [address] [place] [address] Nurse Practitioner Psychiatry 01/29/23 documented as of this encounter
--- OUTSIDE RECORDS SUMMARY | 2024-06-23 15:59 | XMS_ITS | Encounter Summary ---
Author Organization [employer] Address [address] [facility] 7t [place] [address] Care Team Providers Care Clinical Data Associate Name Role Phone Francisco J Peggy [employer]BIRTH MIDWIFE Primary Care Provider Christine Alatorre HNP Unavailable [phone] June, Aron AGNP Primary Care Provider [phone] Encounter Details Date Type Department Care Team ([facility] st Contact Info) Description 12/08/2023 Telephone [facility] [address] [place] [phone] Peggy Marx FNP [address] [place], [place] [phone] Social History Tobacco Use Types Packs/Day Years [...] encounter Miscellaneous Notes * Telephone Encounter - Candy Vela RN - 12/09/2023 10:33 AM EDT Pt. Was just logged on <24hrs to Phone [employer]-- sent message w/ details * Telephone Encounter - Jen Dunham RN - 12/08/2023 2:35 PM EDT Pt states she was sorry she missed her appt today she thought it was for 400 pm. She states she rescheduled until but she has been having vestibular migraine and is on day 6.she states she was told she can only take sumatriptan twice a week. She states 2 days ago she took the medication and it was the third dose. She would like to know what she can do until seen on . She states she does have some of the medication just unsure if ok to take. Please advise. * Telephone Encounter - Shivani Mata - 12/08/2023 2:05 PM EDT Want to discuss the sumatriptin, please call [phone] documented in this encounter Plan of Treatment Upcoming Encounters Date Type Department Care Team (Late st Contact Info) Description 06/28/2024 1:20 PM EDT Office Visit [address] [phone] Aron Rhodes AGNP [address] [place] [address] 07/05/2024 1:20 PM EDT Office Visit [address] [address] Aron Rhodes AGNP [address] [place] [address] 07/12/2024 2:20 PM EDT Office Visit [address] [address] Aron Rhodes AGNP [address] [place] [address] 07/19/2024 1:20 PM EDT Office Visit [address] [phone] [address]ron [address] [address] 07/26/2024 2:20 PM EDT Office Visit [address] [phone] [address] [address] 08/02/2024 1:20 PM EDT Office Visit [address] [phone] [address] documented as of this encounter Visit Diagnoses Not on filedocumented in this encounter Additional Health Concerns Assessment Noted Time PHQ-9 Depression Total Score: 3 12/04/19 3:53 PM EDT documented as of this encounter Care Teams Clinical Data Associate Relationship Specialty Start Date End Date Peggy Marx FNP [address] [place] [address] PCP - General Family Medicine 06/13/22 01/25/24 Aron Rhodes AGNP [address] [place] [address] PCP - General Family Medicine 01/26/24 Christine Alatorre PMHNP [address] [place] [address] Nurse Practitioner Psychiatry 01/29/23 documented as of this encounter
--- OUTSIDE RECORDS SUMMARY | 2024-06-23 15:59 | XMS_ITS | Encounter Summary ---
Author Organization [employer] Address 75 [facility] 7t [place] [address] Care Team Providers Care Catering Sales Manager Name Role Phone Christine Alatorre HNP Unavailable [phone] JuneAron Primary Care Provider [phone] Encounter Details Date Type Department Care Team ([facility] Contact Info) Description 05/13/2024 Telephone [facility] [address] [place] [phone] JuneAron AGNP [address] [place] [address] Social History Tobacco Use Types Packs/Day Years [...] Telephone Encounter - Indu Palmer LPN - 05/13/2024 2:46 PM EDT Spoke to pt stated GI appointment this am and they are going to prescribed something for nutrition but stated pcp needs to provider orders for hydration via port or picc. Pt asking provider to get this started if appointment is need pt is amendable to coming in, * Telephone Encounter - Hue Saul - 05/13/2024 2:37 PM EDT Patient had an appt with a GI specialist this morning and she was told to contact her PCP to discuss different types of hydration , possibly a port or Pic line. Call back # [phone] documented in this encounter Plan of Treatment Upcoming Encounters Date Type Department Care Team (Late st Contact Info) Description 06/28/2024 1:20 PM EDT Office Visit [address] [address] Aron Rhodes [address] [address] 07/05/2024 1:20 PM EDT Office Visit [address] [address] Aron Rhodes [address] [address] 07/12/2024 2:20 PM EDT Office Visit [address] [address] Aron Rhodes [address] [address] 07/19/2024 1:20 PM EDT Office Visit [address] [address] Aron Rhodes [address] [address] 07/26/2024 2:20 PM EDT Office Visit [address] [address] MayAron AGNP [address] [place] [address] 08/02/2024 1:20 PM EDT Office Visit [facility] [address] [place] [phone] JuneAron AGNP [address] [place] [address] documented as of this encounter Visit Diagnoses Not on filedocumented in this encounter Additional Health Concerns Assessment Noted Time PHQ-9 Depression Total Score: 3 12/04/19 24 3:53 PM EDT documented as of this encounter Care Teams Catering Sales Manager Relationship Specialty Start Date End Date JuneAron AGNP [address] [place] [address] PCP - General Family Medicine 01/26/24 Christine Alatorre PMHNP [address] [place] [address] Nurse Practitioner Psychiatry 01/29/23 documented as of this encounter
--- OUTSIDE RECORDS SUMMARY | 2024-06-23 15:59 | XMS_ITS | Encounter Summary ---
Author Organization [employer] Address 75 [facility] 7t [place] [address] Care Team Providers Care Firmware Software Verification Engineer Name Role Phone Christine Alatorre PMHNP Unavailable [phone] JuneAron Primary Care Provider [phone] Encounter Details Date Type Department Care Team ([facility] st Contact Info) Description 04/13/2024 Orders Only [facility] Information Management [address] [place], [place] [phone] Provider, Not In System Social History Tobacco Use Types Packs/Day Years [...] is your housing situation today? I have manihs wilks 12/10/[address] you [...] the past 12 months, has t he [employer], gas, oil or water [employer] threatened to shut off services in your [...] Description 06/28/2024 1:20 PM EDT Office Visit [facility] [address] [place] [phone] Aron Rhodes AGNP [address] [place] [address] 07/05/2024 1:20 PM EDT Office Visit [address] [address] Aron Rhodes [address] [address] 07/12/2024 2:20 PM EDT Office Visit [address] [address] Aron Rhodes [address] [address] 07/19/2024 1:20 PM EDT Office Visit [address] [address] Aron Rhodes [address] [address] 07/26/2024 2:20 PM EDT Office Visit [address] [address] Aron Rhodes [address] [address] 08/02/2024 1:20 PM EDT Office Visit [address] [address] Aron Rhodes [address] [address] documented as of this encounter Procedures Procedure Name Priority Date/Time Associated Diagnosis Comments TISSUE PATHOLOGY Routine 04/04/2024 10:49 AM EST documented in this encounter Results * Tissue Pathology (04/04/2024 10:49 AM EST) Tissue us Not In System Provider LAB PATHOLOGY ORDERABLES Edited Result - Final documented in this encounter Visit Diagnoses Not on filedocumented in this encounter Additional Health Concerns Assessment Noted Time PHQ-9 Depression Total Score: 3 12/04/19 24 3:53 PM EDT documented as of this encounter Care Teams Firmware Software Verification Engineer Relationship Specialty Start Date End Date June, VALERIO Sharp [address] [place] [address] PCP - General Family Medicine 01/26/24 Christine Alatorre PMHNP [address] [place] [address] Nurse Practitioner Psychiatry 01/29/23 documented as of this encounter
--- OUTSIDE RECORDS SUMMARY | 2024-06-23 15:59 | XMS_ITS | Encounter Summary ---
Author Organization [employer] Address 75 [facility] 7t [place] [address] Care Team Providers Care Hay Rake Operator Name Role Phone Francisco J Peggy RISK MANAGER Primary Care Provider Christine Alatorre HNP Unavailable [phone] June, Aron AGNP Primary Care Provider [phone] Encounter Details Date Type Department Care Team ([facility] st Contact Info) Description 12/16/2023 Telephone [facility] [address] [place] [phone] Peggy Marx FNP [address] [place], [place] [phone] Social History Tobacco Use Types Packs/Day Years [...] encounter Miscellaneous Notes * Telephone Encounter - Fouzia Noriega - 12/16/2023 4:47 PM EDT I tried calling a few pharmacies and they don't have any cervical neck braces as a prescription. Not sure if this is something we would order as a DME? * Telephone Encounter - Izabel Barrios - 12/16/2023 4:15 PM EDT Pt is calling back about the neck brace and would like a call back as they are having no luck at any pharmacy * Telephone Encounter - Luz Marina Medina - 12/16/2023 2:08 PM EDT Pt. Called other Pharmacies as told for the cervical collar and had no luck. Pt. Is calling back todiscuss other options.[phone] * Telephone Encounter - Candy Golden MA - 12/16/2023 1:27 PM EDT Messaged pt asking her to call pharmacies and let us know if any have these in stock. Also asked them to let us know who does so PCP can resend script * Telephone Encounter - Izabel Barrios - 12/16/2023 1:03 PM EDT Pt was seen this morning and provider ordered a cervical collar [facility] not [facility] stock . They are wondering if we could call this into somewhere else . documented in this encounter Plan of Treatment Upcoming Encounters Date Type Department Care Team (Late st Contact Info) Description 06/28/2024 1:20 PM EDT Office Visit [address] [phone] Aron Rohdes AGNP [address] [place] [address] 07/05/2024 1:20 PM EDT Office Visit [address] [address] Aorn Rhodes AGNP [address] [place] [address] 07/12/2024 2:20 PM EDT Office Visit [address] [address] Aron Rhodes [address] [address] 07/19/2024 1:20 PM EDT Office Visit [address] [address] Aron Rhodes [address] [address] 07/26/2024 2:20 PM EDT Office Visit [address] [address] Aron Rhodes AGNP [address] [place] [address] 08/02/2024 1:20 PM EDT Office Visit [address] [address] Aron Rhodes [address] [address] documented as of this encounter Visit Diagnoses Not on filedocumented in this encounter Additional Health Concerns Assessment Noted Time PHQ-9 Depression Total Score: 3 12/04/19 24 3:53 PM EDT documented as of this encounter Care Teams Hay Rake Operator Relationship Specialty Start Date End Date Peggy Marx FNP [address] [place] [address] PCP - General Family Medicine 06/13/22 01/25/24 Aron Rhodes AGNP [address] [place] [address] PCP - General Family Medicine 01/26/24 Christine Alatorre PMHNP [address] [place] [address] Nurse Practitioner Psychiatry 01/29/23 documented as of this encounter
--- OUTSIDE RECORDS SUMMARY | 2024-06-23 15:59 | XMS_ITS | Encounter Summary ---
Author Organization [employer] Address [address] [facility] [address] [place] [address] Care Team Providers Care Dental Secretary Name Role Phone Christine Alatorre PMHNP Unavailable [phone] JuneAron Primary Care Provider [phone] Encounter Details Date Type Department Care Team ([facility] Contact Info) Description 06/07/2024 Telephone [facility] [address] [place] [address] Aron Rhodes AGNP [address] [place] [address] Social History Tobacco Use Types Packs/Day Years [...] Miscellaneous Notes * Telephone Encounter - Ivanna Madrid, MAGGIE - 06/07/2024 4:31 PM EDT Spoke with Maureen. Pt is on tube feed currently. 4-6 weeks to maintain weight and hydration. Still inpatient at [facility]. GI team hopefully tomorrow is doing more with tube feed and doing plan. They are hoping you are willing to continue Tube feeding when they are discharged from hospital. They use [facility] for supplies which they take care of. They would just need you to sign orders etc They anticipate they will be discharged end of this week. They are hoping tube feed for only 4-6 weeks. * Telephone Encounter - Renetta Perera - 06/07/2024 4:12 PM EDT Maureen from [facility] requested Tube feed prescriber for the pt Call back number: [phone] documented in this encounter Plan of Treatment Upcoming Encounters Date Type Department Care Team (Late st Contact Info) Description 06/28/2024 1:20 PM EDT Office Visit [address] [phone] Aron Rhodes AGNP [address] [place] [address] 07/05/2024 1:20 PM EDT Office Visit [address] [phone] Aron Rhodes AGNP [address] [place] [address] 07/12/2024 2:20 PM EDT Office Visit [address] [phone] Aron Rhodes AGNP [address] [place] [address] 07/19/2024 1:20 PM EDT Office Visit [address] [phone] Aron Rhodes AGNP [address] [place] [address] 07/26/2024 2:20 PM EDT Office Visit [address] [phone] JuneAron AGNP [address] [place] [address] 08/02/2024 1:20 PM EDT Office Visit [address] [phone] JuneAron AGNP [address] [place] [phone] documented as of this encounter Visit Diagnoses Not on filedocumented in this encounter Additional Health Concerns Assessment Noted Time PHQ-9 Depression Total Score: 3 12/04/19 24 3:53 PM EDT documented as of this encounter Care Teams Dental Secretary Relationship Specialty Start Date End Date JuneAron AGNP [address] [place] [address] PCP - General Family Medicine 01/26/24 Christine Alatorre PMHNP [address] [place] [phone] Nurse Practitioner Psychiatry 01/29/23 documented as of this encounter
--- OUTSIDE RECORDS SUMMARY | 2024-06-23 15:59 | XMS_ITS | Encounter Summary ---
Author Organization [employer] Address [address] [facility] [address] [place] [address] Care Team Providers Care Surfacer Operator Name Role Phone Christine Alatorre HNP Unavailable [phone] JuneAron Primary Care Provider [phone] Encounter Details Date Type Department Care Team ([facility] Contact Info) Description 06/07/2024 Telephone [facility] [address] [place] [phone] JuneAron AGNP [address] [place] [address] Social History Tobacco Use Types Packs/Day Years [...] encounter Miscellaneous Notes * Telephone Encounter - Dianne Marlon - 06/07/2024 2:25 PM EDT Maureen Argueta an Inpatient PA from [facility] on vmail at 203 pm asking for Aron to return her call at [phone] documented in this encounter Plan of Treatment Upcoming Encounters Date Type Department Care Team (Late st Contact Info) Description 06/28/2024 1:20 PM EDT Office Visit [address] [phone] Aron Rhodes [address] [address] 07/05/2024 1:20 PM EDT Office Visit [address] [phone] Aron Rhodes [address] [address] 07/12/2024 2:20 PM EDT Office Visit [address] [address] Aron Rhodes [address] [address] 07/19/2024 1:20 PM EDT Office Visit [address] [address] Aron Rhodes [address] [address] 07/26/2024 2:20 PM EDT Office Visit [address] [phone] Aron Rhodes [address] [address] 08/02/2024 1:20 PM EDT Office Visit [address] [address] Aron Rhodes [address] [address] documented as of this encounter Visit Diagnoses Not on filedocumented in this encounter Additional Health Concerns Assessment Noted Time PHQ-9 Depression Total Score: 3 12/04/19 24 3:53 PM EDT documented as of this encounter Care Teams Surfacer Operator Relationship Specialty Start Date End Date June, VALERIO Sharp [address] [place] [phone] PCP - General Family Medicine 01/26/24 Christine Alatorre PMHNP [address] [place] [phone] Nurse Practitioner Psychiatry 01/29/23 documented as of this encounter
== END 2024-06-24 07:35 | disposition home or self-care (01) ==
LOC: HO.HVS 15:23
PROVIDERS: Visit Provider Surgery Vascular Surgery
DX: I77.4 Celiac artery compression syndrome (principal)
CPT/HCPCS: 99204

== ENCOUNTER → 2024-06-23 15:23 | Outpatient (BNVA) | payer MEDICAID, SELFPAY | PROVIDERS: Visit Provider Surgery Vascular Surgery | DX: I77.4 Celiac artery compression syndrome (principal) | CPT/HCPCS: 99202 ==